=== PATIENT | male | born 1990 | race Two or more races ===

== ENCOUNTER 2024-05-24 06:50 | Emergency (ER) | payer MEDICARE, MEDICAID, SELFPAY ==
[2024-05-24 06:51] VITALS: BMI 35.9
[2024-05-24 07:01] VITALS: BP 120/70; PULSE 131; RESP 19; TEMP 37; O2SAT 98
--- NOTE | 2024-05-24 07:12 | XR_ITS ---
Examination: Tibia-Fibula, right , 2 views Technique: Tibia-fibula AP lateral 2 views Date and time of exam: May 24, 2024 0719 hrs. 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
--- NOTE | 2024-05-24 07:12 | XR_ITS ---
Examination: Duplex scan of the lower extremity, unilateral right complete Date and time of exam: May 24, 2024 0759 hrs. Indications: Right tibia surgery May 22, 2024 followed by right leg pain and swelling beginning 2 days ago Technique: Duplex scan of the extremity veins using B-mode/grayscale imaging and Doppler spectral analysis and color flow Attention is directed to internal echogenicity, compression and augmentation involving these veins, color flow assessment, spectral analysis Findings: Positive for acute nonocclusive thrombus in the right proximal posterior tibial vein Right common femoral superficial femoral popliteal and peroneal veins are open Impression: Positive for acute nonocclusive thrombus in the proximal right posterior tibial vein
--- NOTE | 2024-05-24 07:13 | PD.EDRME ---
Rapid Medical Screening Exam RME Arrival date/time: 05/24/24 06:50 Chief Complaint: Wound Recheck / Suture Removal Time Seen by Provider: 05/24/24 06:57 Vital signs: Vital Signs Temperature 98.6 F 05/24/24 07:01 Pulse Rate 131 H 05/24/24 07:01 Respiratory Rate 19 05/24/24 07:01 Blood Pressure 120/70 05/24/24 07:01 Pulse Oximetry (%) 98 05/24/24 07:01 Oxygen Delivery Method Room Air 05/24/24 07:01 RME Narrative: Patient POD#2 s/p revision of RLE ORIF. Ortho is in [place]. 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
[2024-05-24] MEDS: MORPHINE SULF INJ 10 MG/ML VIAL 5 MG IM (07:40)
[2024-05-24 08:27] VITALS: BP 110/78; PULSE 115; RESP 18; TEMP 37.3; O2SAT 98
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
[2024-05-24] MEDS: HYDROmorphone INJ 2 MG/ML VIAL IM (08:56)
[2024-05-24] MEDS: ENOXAPARIN SOD INJ 100 MG/ML SYRINGE SC (08:56)
[2024-05-24 09:27] VITALS: BP 117/70; PULSE 108; RESP 17; TEMP 37.2; O2SAT 95
== END 2024-05-24 09:53 | disposition home or self-care (01) ==
PROVIDERS: Emergency Provider Emergency Medicine; PCP Family Medicine
DX: I82.441 Acute embolism and thrombosis of right tibial vein (principal)
CPT/HCPCS: 73590; 93971; 96372; 99284; J1650; J2270; J3490

== ENCOUNTER 2024-05-24 17:41 | Emergency (ER) | payer MEDICARE, MEDICAID, SELFPAY ==
[2024-05-24 17:51] VITALS: PULSE 88; RESP 18; O2SAT 98; BMI 31.4
[2024-05-24 18:10] VITALS: BP 114/73; PULSE 116; RESP 19; TEMP 38.3; O2SAT 97
--- NOTE | 2024-05-24 18:18 | XR_ITS ---
Examination: AP chest single view Technique: Sitting AP chest single view Exam date and time: May 24, 2024 1855 hrs. Indications: Chest pain leg pain sepsis today Findings: Mild prominence left ventricle Moderate blunting of left lateral costophrenic angle. No pneumonia or pulmonary edema Surgical clips in right axilla and stent in the thoracic aorta Impression: No pneumonia or pulmonary edema
--- NOTE | 2024-05-24 18:18 | EKG_ITS ---
[facility] Test Date: 2024-05-24 Pat Name: DEVORA ESPINOSA Department: Room: - Gender: Male Lifeguard: : 1990 Requested By: Luiz Munoz ([facility]) Order Number: [id number] Reading MD: Luiz Munoz ([facility]) Measurements Intervals [place] Rate: 110 P: 45 TN: 124 QRS: 34 QRSD: 89 T: 54 QT: 303 QTc: 410 Interpretive Statements SINUS TACHYCARDIA POSSIBLE LEFT ATRIAL ENLARGEMENT [-0.1mV P WAVE IN V1/V2] ABNORMAL RHYTHM ECG Compared to ECG 05/14/2022 05:53:06 Sinus rhythm no longer present /[id number]/[email or web address]/[id number]
--- NOTE | 2024-05-24 18:19 | PD.EDRME ---
Rapid Medical Screening Exam RME Arrival date/time: 05/24/24 17:41 33-year-old male recently diagnosed with DVT right lower extremity presents emergency department complaining of right lower leg pain with nausea vomiting and fever. Chief Complaint: Hip Injury/Pain Time Seen by Provider: 05/24/24 18:13 Vital signs: Vital Signs Temperature 101.0 F H 05/24/24 18:10 Pulse Rate 116 H 05/24/24 18:10 Respiratory Rate 19 05/24/24 18:10 Blood Pressure 114/73 05/24/24 18:10 Pulse Oximetry (%) 97 05/24/24 18:10 Oxygen Delivery Method Room Air 05/24/24 18:10 Vital signs reviewed by provider: Yes
[2024-05-24 18:22] VITALS: TEMP 38.3
[2024-05-24] MEDS: ACETAMINOPHEN 500 MG TABLET 1000 MG PO (18:22)
[2024-05-24 18:56] LABS: Lactate (Lactic Acid) 1.2 mMol/L (0.4-2.0)
[2024-05-24 18:57] LABS: Basophils # (Auto) 0.1 Thou/mm3 (0.0-0.2); Basophils % (Auto) 1 % (0-2.5); Eosinophils # (Auto) 0.3 Thou/mm3 (0.0-0.5); Eosinophils % (Auto) 2 % (0-10); Hematocrit 39.7 % (41.0-53.0); Hemoglobin 13.3 g/dL (13.5-16.0); Immature Granulocytes % (Auto) 1 % (0-0); Lymphocytes % (Auto) 6 % (10-50); Mean Corpuscular HGB Conc 33.5 g/dl (31.0-37.0); Mean Corpuscular Hemoglobin 27.7 pg (25.0-35.0); Mean Corpuscular Volume 83 fL (80-100); Monocytes # (Auto) 0.9 Thou/mm3 (0.0-0.8); Monocytes % (Auto) 5 % (0-12); Neutrophils # (Auto) 14.1 Thou/mm3 (1.8-7.7); Neutrophils % (Auto) 86 % (37-80); Nucleated Red Blood Cell % 0 /100 WBC (0); Platelet Count 234 Thou/mm3 (140-440); RDW Standard Deviation 44.1 fL (35.1-43.9); White Blood Count 16.5 Thou/mm3 (3.8-10.6)
[2024-05-24 19:14] LABS: INR 1.1 (0.9-1.3); Partial Thromboplastin Time 35.4 Seconds (22.0-36.0); Prothrombin Time 12.2 Seconds (9.0-12.2)
[2024-05-24 19:21] LABS: B-Type Natriuretic Peptide 62 pg/mL (0-100)
[2024-05-24 19:27] LABS: Alanine Aminotransferase 153 U/L (10-49); Albumin, Serum 5.1 gm/dL (3.5-5.0); Albumin/Globulin Ratio 1.9 (1.2-2.2); Alkaline Phosphatase 206 U/L (46-116); Anion Gap 8 (7-16); Aspartate Amino Transferase 75 U/L (0-34); BUN/Creatinine Ratio 14 Ratio (12-20); Bilirubin,Total 1.2 mg/dL (0.3-1.2); Blood Urea Nitrogen 11 mg/dL (9-23); Calcium 9.6 mg/dL (8.3-10.6); Calcium (Corrected) 9.6 mg/dL (8.5-10.1); Carbon Dioxide 22.6 mMol/L (20.0-31.0); Chloride 102 mMol/L (98-107); Creatinine (Component) 0.8 mg/dL (0.6-1.3); Globulin 2.7 gm/dL (2.3-3.5); Glucose 118 mg/dL (74-106); Lipase 24 U/L (12-53); Magnesium 1.5 mg/dL (1.6-2.6); Osmolality,Calculated 266 (275-295); Phosphorous 1.9 mg/dL (2.4-5.1); Potassium 3.8 mMol/L (3.4-5.1); Sodium 133 mMol/L (136-145); Total Protein 7.8 gm/dL (5.7-8.2); Troponin I < 0.002 ng/mL (0.0-0.045); eGFR > 60 See Note
[2024-05-24 19:30] LABS: Procalcitonin 0.54 ng/ml (0.0-0.49)
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
[2024-05-24 21:37] VITALS: BP 137/81; PULSE 109; RESP 19; TEMP 37.6; O2SAT 100
[2024-05-24] MEDS: PIPER/TAZO 3.375 GM 3.375 GM/50 ML BAG IV (22:25)
[2024-05-24] MEDS: ONDANSETRON INJ 2 MG/ML INJ 2 ML 4 MG IV (22:25)
[2024-05-24] MEDS: Magnesium Sulfate 2 GM Ivpb 2 GM/50 ML BAG IV (22:25)
[2024-05-24] MEDS: HYDROmorphone INJ 2 MG/ML VIAL 1 MG IVP ×2 (22:25→23:26)
[2024-05-24] MEDS: SODIUM CHLORIDE 0.9% 1000 ML 1,000 ML 999 ML IV (22:26)
[2024-05-24 22:29] VITALS: BP 154/79; PULSE 105; RESP 18; O2SAT 98
[2024-05-24 23:00] VITALS: BP 155/69; PULSE 102; RESP 9; O2SAT 98
[2024-05-24] MEDS: Vancomycin Inj 1,000 MG in SODIUM CHLORIDE 0.9% 250 ML 250 ML 150 MG IV (23:11)
[2024-05-24 23:46] LABS: Collection Type, Urine Clean Catch
[2024-05-24 23:53] LABS: Bilirubin,Urine Negative (Negative); Blood,Urine Negative (Negative); Clarity,Urine Clear (Clear/Hazy); Color,Urine Lt-Yellow (Lt Yel-Yel); Glucose, Urine Negative (Negative); Ketones,Urine Negative (Negative); Leukocyte Esterase,Urine Negative (Negative); Nitrite,Urine Negative (Negative); PH,Urine 6.5 (5.0-7.0); Protein,Urine Negative (Neg - Trace); RBC,Urine < 1 /hpf (0-3); Specific Gravity,Urine 1.011 (1.001-1.035); Squamous Epithelial Cell,Urine < 1 /hpf (0-5); Urobilinogen,Urine Negative mg/dL (0.0-1.0); WBC,Urine 1 /hpf (0-5)
[2024-05-24 23:59] LABS: Amphetamine/Methamp Scrn,U Negative (Negative); Barbiturate Screen,Urine Negative (Negative); Benzodiazepines Screen,Urine Negative (Negative); Benzoylecgonine Screen, Ur Negative (Negative); Fentanyl Screen,Urine Negative (Negative); Opiate Screen,Urine Positive (Negative); THC Screen,Urine Positive (Negative)
[2024-05-25] VITALS (36 sets, daily range): BP systolic 111–161; BP diastolic 58–80; PULSE 81–118; RESP 8–21; TEMP 36.7–38.1; O2SAT 94–100
--- NOTE | 2024-05-25 00:33 | XR_ITS ---
Examination: CT right lower extremity, without contrast. 2-D sagittal reconstructions. 2-D coronal reconstructions. 3-D reconstructions. Date and time of exam:December 24, 2023 0049 hrs. Indications: Right leg swelling and pain this week, history tibial fractures post reduction internal fixation CTDI: vol (mGy):8.64 DLP: (mGycm):597 Technique: Multiple 1.25 mm axial sections of the right lower leg without intravenous contrast have been obtained. 2-D sagittal and coronal reconstructions have been obtained. 3-D reconstructions have been obtained. Low dose protocols were performed. One or more of the following dose reduction techniques were used; automated exposure control, adjustment of the mA and/or KV according to patient size, use of iterative reconstruction technique. 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
--- NOTE | 2024-05-25 00:46 | XR_ITS ---
Examination: Abdomen sonogram, Limited Date and time of exam: May 25, 2024 0216 hrs. Indications: Right abdominal pain beginning 3 days ago Technique: Real-time narvaez scale transabdominal sonographic images of the upper abdomen obtained. Findings: Absent gallbladder Normal common bile duct 0.5 cm Pancreatic head 3.3 cm Liver 15.2 cm no focal liver lesions Normal hepatopedal portal venous flow Patent IVC Impression: Absent gallbladder Normal common bile duct
[2024-05-25] MEDS: MORPHINE SULF INJ 10 MG/ML VIAL 5 MG IVP ×2 (01:10→05:58)
--- NOTE | 2024-05-25 02:04 | PRELIM_ITS ---
CT scan of the right lower extremity without intravenous contrast (axial sections with sagittal and c oronal reformats) May 25, 2024 0049 hours Clinical History: Post surgical infection Comparison: No prior study is available for comparison. 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 A surgical plate is noted at the level of non- united fracture of the distal tibia. An intramedullary nail with screws are noted in the tibia. There is possible periprosthetic lucency around the distal portion of the intramedullary nail, concerning for loosening. There is a chronic osseous defect at the proximal end of the intramedullary nail in th e anterosuperior aspect of lateral tibial plateau with associated granulation tissue and calcificatio ns, also involving the patellar tendon. There are chronic deformities in the head, mid shaft and dist al metaphysis of the fibula. Surgical implants are noted in the distal femur, partially imaged. No ac asa'[place] fracture or dislocation is noted. No joint effusion is noted. There are scattered areas of subcut aneous soft tissue granulation / phlegmon with calcifications in the anterior aspect of proximal and distal leg. There is no definite evidence of drainable loculated fluid collection to suggest abscess. There is mild soft tissue edema involving predominantly the muscles of the proximal leg. There is n o evidence of soft tissue emphysema. There is diffuse subcutaneous edema involving the leg.Impression :Postsurgical changes with chronic fractures / deformities as described above. No drainable loculated fluid collection to suggest abscess. Diffuse subcutaneous edema with mild muscle edema in the leg as described, concerning for cellulitis. Recommend clinical correlation. Possible loosening of the intr amedullary tibial nail in the distal portion. Recommend clinical correlation. Scattered areas of subc utaneous soft tissue granulation / phlegmon with calcifications in the anterior aspect of proximal an d distal leg.Other findings as described above. Report Electronically Signed By: Nimesh Jane 2023 2:04:42 AM [EST]
--- NOTE | 2024-05-25 02:37 | PC.NURSE ---
0019 CONTA[address] [facility] SPOKE WITH [facility]. PT PKT SENT AT THIS TIME. [facility] IS AT CAPACITY
[2024-05-25] MEDS: HYDROcodone/APAP 5/325 TABLET 2 TAB PO (03:26)
--- NOTE | 2024-05-25 04:26 | PRELIM_ITS ---
Right upper quadrant abdominal ultrasound. May 25, 2024 0216 hours Clinical history: fever, elev ated LFTs Comparison: NoneFindings:Cholecystectomy. Common bile duct is 5 mm in diameter. Pancreas i s 3.3 cm is noted. Pancreatic tail is obscured. Liver is 15.2 centimeters long. Liver parenchyma is h yperechoic with smooth contour. No focal hepatic lesion. Main portal vein is antegrade. Inferior vena cava is patent.Impression: Fatty liver infiltration.No acute process. Report Electronically Signed B y: Brian Hooker 05/25/2024 4:25:18 AM [EST]
--- NOTE | 2024-05-25 08:41 | PC.CM ---
Addendum entered by Zeinab Aguilar RN 05/25/24 14:27: 1425 I called [facility] again, spoke to Sunil. She stated the status is it's still pending financial clearance. I informed her per Dr. Latif pt is septic and it's life or limb and we cannot wait until tomorrow for getting insurance auth. She continue to argue with me back and forth and stated regardless they are unable to bring pt. because of diversion. Addendum entered by Zeinab Aguilar RN 05/25/24 14:21: [address] Latif pt is accepted but transfer center wants me to work on getting insurance auth. Dr. Latif stated pt is septic and is sick it's life or limb situation. Addendum entered by Zeinab Aguilar RN 05/25/24 14:14: 1412 called [facility], spoke to See and she confirmed pt is accepted by Dr. Bradley Luna. She stated but it requires insurance auth. I informed her pt is in ED and for ED pt auth is not required. She stated it's a post op infection not life threatening condition. So it is not an EMTALA. She stated we need to work on getting insurance auth for the transfer. Addendum entered by Zeinab Aguilar RN 05/25/24 14:11: error in time it's [address] Velasquez office at [phone]. Spoke to after hours provider service representative again and I was connected to Dr. Bradley Luna again. He stated he spoke to [facility] transfer center to accept the pt. Addendum entered by Zeinab Aguilar RN 05/25/24 14:08: [address] Velasquez office at [phone]. Spoke to after hours provider service representative again and I was connected to Dr. Bradley Luna again. He stated he spoke to [facility] transfer center to accept the pt. Addendum entered by Zeinab Aguilar RN 05/25/24 14:05: [address] Velasquez office at [phone]. Spoke to after hours provider service representative Osvol and informed regarding the pt. He stated Dr. Velasquez is not available but he can connect me to professional shopper orthopedic Dr. Bradley Luna. I spoke to DrMike informed that pt is back in ED. I informed him about CT lower extremity report, reason why the pt came. Dr. Bradley Luna stated pt just had his surgery this and pt is going to have nonunion fracture. He stated he is going to speak to Dr. Velasquez and call me back. Addendum entered by Zeinab Aguilar RN 05/25/24 10:10: [address] Latif to inform, community relations coordinator informed me, he is busy with critical pt. Addendum entered by Zeinab Aguilar RN 05/25/24 10:09: [address] Latif, he is busy with pt. Unable to speak to him. Addendum entered by Zeinab Aguilar RN 05/25/24 10:02: 0849 Called [facility], spoke to See to initiate the transfer. She stated they are at capacity. I informed her pt had sx at [facility] and is back in ER. She stated Dr. Velasquez operated the pt. I have to call his office at [phone] directly. I told her that today is Sunday and office wont be open. We can't keep the pt in ER for that long and pt had surgery done at [facility]. She stated they are at capacity. We have to call directly. It was back and forth conversation and she does not want to proceed further. She just want me to call the 's office directly. Original Note: [address] 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 Pt has sx at [facility] last . It's a continuation of care/general surgery services request. 71 spoke to charge nurse that pt needs to be transferred. She stated it was initiated by charge nurse last night but [facility] where pt had his surgey done, declined saying they are at capacity. I asked the dx, charge nurse informed me that they are waiting for CT result of right lower extremity. I will follow up with Dr. Latif when CT report is available.
[2024-05-25] MEDS: SODIUM CHLORIDE 0.9% 1000 ML 1,000 ML 125 ML IV (09:10)
[2024-05-25] MEDS: MORPHINE SULF INJ 10 MG/ML VIAL 4 MG IVP (09:10)
[2024-05-25] MEDS: PIPER/TAZO 3.375 GM 50 ML IV ×2 (09:20→22:56)
[2024-05-25] MEDS: ONDANSETRON INJ 2 MG/ML INJ 2 ML 4 MG IV (09:20)
[2024-05-25] MEDS: HYDROmorphone INJ 2 MG/ML VIAL 1 MG IVP ×3 (11:01→18:01)
[2024-05-25] MEDS: DiphenhydrAMINE INJ 50 MG/ML VIAL IVP (14:37)
--- NOTE | 2024-05-25 17:37 | PD.EDADDENDU ---
Emergency Room Addendum Addendum Narrative: Patient was signed out to me from Dr. MALDONADO at 6:00 this morning. She said that workup has been completed. The patient is pending transfer to [facility] where he had his most recent surgery done last . By . Patient states that he had a screw removed from his right tibia area. Now he complained with a fever 101 and septic. Lactic acid is negative. Procalcitonin is 0.54. The patient was given IV vancomycin and Zosyn by my predecessor Dr. MALDONADO. Patient is also diagnosed with DVT of the right leg. For which he was put on Eliquis by Dr. Monroy yesterday morning. I am giving the patient IV painkiller almost [id number] because he was screaming and groaning and moaning in pain. Throughout the whole day, FLORESITA, our transfer nurse has been working on the transfer. She told me that the patient has been accepted by Dr. Bradley Luna. But the facility is on diversion and the transfer nurse from [facility] is made aware of the severity of our patient condition. She required insurance authorization also. And according to the transfer nurse from our facility, she is working on insurance preauthorization also. 5:15 PM, I also spoke to and discussed with Dr. Pierson, our orthopedic surgeon on-call. He said that he would come in and see the patient and write a note. But he recommended that the patient be transferred as well. 6 PM, still pending a successful transfer, the patient is stable and is signed out to Dr. MALDONADO Diagnosis: Fever DVT Osteomyelitis Loosening intramedullary dariela Condition: Stable at signout and pending Dr. Pierson's evaluation and note
--- NOTE | 2024-05-25 17:50 | PC.NURSE ---
Patient states pain 10/10. Informed ER provider and received verbal order for 1mg hydromorphone and 25mg benadryl
[2024-05-25] MEDS: DiphenhydrAMINE INJ 50 MG/ML VIAL 25 MG IVP (18:01)
[2024-05-25] MEDS: APIXABAN 2.5 MG TABLET 5 MG PO (18:02)
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
[2024-05-25] MEDS: VANCOMYCIN/NS 1 GM IVPB 200 ML IV (19:16)
--- NOTE | 2024-05-25 20:22 | EDNOTE_ITS ---
Emergency Room Addendum <Yaz Briceno - Last Filed: 05/26/24 00:35> Addendum Narrative: 1800: Care assumed from Dr. Latif, the previous shift emergency physician. Past medical, surgical, social and family history reviewed. Vitals and home medications reviewed. I will assume the care of the patient at this time, pending Dr. Scott's consultation and final disposition, possible transfer. Please refer to the emergency department record for history and examination from initial visit.? Physical exam by me shows patient under no acute distress at this time. 1200: [facility] accepted patient, Dr. Bradley Luna accepted. <Lali Reynoso - Last Filed: 05/26/24 05:29> Addendum Narrative: 1800: Care assumed from Dr. Latif, the previous shift emergency physician. Past medical, surgical, social and family history reviewed. Vitals and home medications reviewed. I will assume the care of the patient at this time, pending Dr. Scott's consultation and final disposition, possible transfer. Please refer to the emergency department record for history and examination from initial visit.? Physical exam by me shows patient under no acute distress at this time. 1200: [facility] accepted patient, Dr. Bradley Luna accepted. 0600: Care signed out to [facility] emergency physician. Past medical, surgical, social and family history reviewed. Vitals and home medications reviewed. They will assume the care of the patient at this time, pending authorization for transfer.
[2024-05-25] MEDS: oxyCODONE/APAP 5/325 TABLET 2 TAB PO (20:38)
[2024-05-25] MEDS: fentaNYL 50 mCg TRANSDERMAL PATCH 100 MCG TOP (21:39)
[2024-05-26] VITALS (12 sets, daily range): BP systolic 127–173; BP diastolic 63–83; PULSE 82–105; RESP 15–33; TEMP 36.8–37.2; O2SAT 95–100
[2024-05-26] MEDS: oxyCODONE/APAP 5/325 TABLET 2 TAB PO (04:50)
--- NOTE | 2024-05-26 05:19 | PC.NURSE ---
pt placed on waffle mattress
[2024-05-26] MEDS: VANCOMYCIN/NS 1 GM IVPB 200 ML IV ×2 (06:51→15:23)
--- NOTE | 2024-05-26 06:55 | PC.NURSE ---
Pt had a good night. Sleepping with pain controlled.
--- NOTE | 2024-05-26 08:00 | PC.NURSE ---
MD MONTEIRO AWARE PT IS IN PAIN NO ORDERS GIVEN
--- NOTE | 2024-05-26 08:42 | PC.CM ---
Addendum entered by Francesca Gordon RN 05/27/24 08:27: I spoke to Diana with [employer] and I let her know patient left AMA yesterday evening. Addendum entered by Francesca Gordon RN 05/26/24 18:02: This patient also has [employer] insurance at ?[phone]. I spoke to Diana and I presented patient and faxed over documentation. She will get back to us once the Geology Professor reviews patient. I did not hear anything at the end of the day. I am back tomorrow so I will follow up. Addendum entered by Francesca Gordon RN 05/26/24 15:05: 1320 I called Maryann at [facility] to follow up on authorization request [phone] ext. [phone]. I was only able to leave a message. I asked for a call back as soon as possible. Addendum entered by Francesca Gordon RN 05/26/24 09:10: I contacted [facility] [phone] and I spoke to the department. I initiated a request for higher level transfer. They requested I fax information along with a facesheet to [phone]. I fax information at this time. Original Note: I called and spoke to See with the transfer center at [facility]. She states they are very familiar with this patient. She states she we will need to get authorization from patient's insurance before they will proceed. I let her know per the notes our doctor feels patient is emergent and we should not need authorization. See states their doctor reviewed patient's information and he does not feel patient is emergent. Again, See stated they are very familiar with this patient. I will reach out to patient's insurance this morning.
--- NOTE | 2024-05-26 09:29 | EDNOTE_ITS ---
Emergency Room Addendum <Haylee Cooper - Last Filed: 05/26/24 09:47> Addendum Narrative: 0600: Care assumed from Dr. Choudhary, the previous shift emergency physician. Past medical, surgical, social and family history reviewed. Vitals and home medications reviewed. I will assume the care of the patient at this time, pending insurance authorization for transfer. Please refer to the emergency department record for history and examination from initial visit.? Nursing notes reviewed by me. Vital signs reviewed by me. [facility] medical records reviewed by me. <Gilbert Latif MD - Last Filed: 05/26/24 18:09> Addendum Narrative: 0600: Care assumed from Dr. Choudhary, the previous shift emergency physician. Past medical, surgical, social and family history reviewed. Vitals and home medications reviewed. I will assume the care of the patient at this time, pending insurance authorization for transfer. Please refer to the emergency department record for history and examination from initial visit.? Nursing notes reviewed by me. Vital signs reviewed by me. [facility] medical records reviewed by me. There has been no issues since signout to me from Dr. CHOUDHARY at 6:00 this morning. Still pending insurance authorization for transfer to [facility], the patient is stable and is now signed out to Dr. Woo Diagnosis: DVT Osteomyelitis Loosening intramedullary dariela
[2024-05-26] MEDS: PIPER/TAZO 3.375 GM 50 ML IV ×2 (09:56→15:24)
--- NOTE | 2024-05-26 15:21 | PC.NURSE ---
MD MADE AWARE PT IS IN EXCRUCIATING PAIN, NO ORDERS GIVEN.
--- NOTE | 2024-05-26 18:22 | PD.EDADDENDU ---
Emergency Room Addendum Addendum Narrative: 6:22 PM, I am being notified by the nurse Eduarda that the patient has just signed out AGAINST MEDICAL ADVICE. According to her, the patient's sister came and picked him up. She was not able to convince the patient to stay. And he is taking the risks by signing out AMA.
== END 2024-05-26 18:22 | disposition left against medical advice (07) ==
PROVIDERS: Emergency Provider Emergency Medicine; PCP Family Medicine
DX: A41.9 Sepsis, unspecified organism (principal); L03.115 Cellulitis of right lower limb; T84.038A Mechanical loosening of other internal prosthetic joint, initial encounter; Y83.8 Other surgical procedures as the cause of abnormal reaction of the patient, or of later complication, without mention of misadventure at the time of the procedure; R10.9 Unspecified abdominal pain; R00.0 Tachycardia, unspecified; I82.4Z3 Acute embolism and thrombosis of unspecified deep veins of distal lower extremity, bilateral; M86.8X6 Other osteomyelitis, lower leg; I10 Essential (primary) hypertension; Z53.29 Procedure and treatment not carried out because of patient's decision for other reasons
CPT/HCPCS: 36415; 71046; 73700; 76705; 80053; 80202; 80307; 81001; 83605; 83690; 83735; 83880; 84100; 84145; 84484; 85025; 85610; 85730; 87040; 87086; 87400; 87811; 93005; 96361; 96365; 96366; 96375; 96376; 99285; J1200; J2270; J2405; J2543; J3370; J3371; J3475; J3490; J7030; J7050; A9270

== ENCOUNTER 2024-07-04 21:53 | Emergency (ER) | payer MEDICARE, MEDICAID, SELFPAY ==
[2024-07-04 21:55] VITALS: BMI 34.4
[2024-07-04 22:07] VITALS: BP 161/81; PULSE 100; RESP 18; TEMP 36.8; O2SAT 94
--- NOTE | 2024-07-04 22:08 | EKG_ITS ---
[facility] Test Date: 2024-07-04 Pat Name: DEVORA ESPINOSA Department: Room: - Gender: Male [employer]: : 1990 Requested By: Russ Harper Order Number: [id number] Reading MD: Russ Harper Measurements Intervals [place] Rate: 92 P: 50 NH: 150 QRS: 36 QRSD: 94 T: 47 QT: 361 QTc: 448 Interpretive Statements SINUS RHYTHM Compared to ECG 05/24/2024 18:44:32 Sinus tachycardia no longer present /store/S0/[id number].pdf
--- NOTE | 2024-07-04 22:09 | PD.EDRME ---
Rapid Medical Screening Exam RME Arrival date/time: 07/04/24 21:53 33-year-old male with no known medical history presents to the emergency room with a chief complaint of chest palpitations and chest pain that is an 8 out of 10 in severity and radiates to his upper neck x 1 day I have greeted and performed a focused initial assessment of this patient. A comprehensive ED assessment and evaluation of the patient, analysis of all test results, and completion of the medical decision making process will be conducted by additional ED providers. Chief Complaint: Arrhythmia/Palpitations Vital signs: Vital Signs Temperature 98.2 F 07/04/24 22:07 Pulse Rate 100 07/04/24 22:07 Respiratory Rate 18 07/04/24 22:07 Blood Pressure 161/81 H 07/04/24 22:07 Pulse Oximetry (%) 94 L 07/04/24 22:07 Oxygen Delivery Method Room Air 07/04/24 22:07 Vital signs reviewed by provider: Yes
[2024-07-04 23:23] LABS: Basophils # (Auto) 0.1 Thou/mm3 (0.0-0.2); Basophils % (Auto) 1 % (0-2.5); Eosinophils # (Auto) 0.5 Thou/mm3 (0.0-0.5); Eosinophils % (Auto) 4 % (0-10); Hematocrit 35.5 % (41.0-53.0); Hemoglobin 11.8 g/dL (13.5-16.0); Immature Granulocytes % (Auto) 0 % (0-0); Immature Granulocytes Auto 0.04 Thou/mm3 (0.00-0.00); Lymphocytes # (Auto) 2.3 Thou/mm3 (1.0-4.8); Lymphocytes % (Auto) 20 % (10-50); Mean Corpuscular HGB Conc 33.2 g/dl (31.0-37.0); Mean Corpuscular Volume 81 fL (80-100); Monocytes # (Auto) 0.7 Thou/mm3 (0.0-0.8); Monocytes % (Auto) 6 % (0-12); Neutrophils # (Auto) 7.8 Thou/mm3 (1.8-7.7); Neutrophils % (Auto) 68 % (37-80); Nucleated Red Blood Cell % 0 /100 WBC (0); Platelet Count 319 Thou/mm3 (140-440); RDW Standard Deviation 44.7 fL (35.1-43.9); Red Blood Count 4.37 Miln/mm3 (4.50-5.90); White Blood Count 11.5 Thou/mm3 (3.8-10.6)
[2024-07-04 23:35] LABS: Alanine Aminotransferase 44 U/L (10-49); Albumin, Serum 4.6 gm/dL (3.5-5.0); Albumin/Globulin Ratio 1.5 (1.2-2.2); Alkaline Phosphatase 168 U/L (46-116); Anion Gap 8 (7-16); Aspartate Amino Transferase 22 U/L (0-34); BUN/Creatinine Ratio 16 Ratio (12-20); Bilirubin,Total 0.2 mg/dL (0.3-1.2); Blood Urea Nitrogen 13 mg/dL (9-23); Calcium 9.5 mg/dL (8.3-10.6); Calcium (Corrected) 9.5 mg/dL (8.5-10.1); Carbon Dioxide 25.2 mMol/L (20.0-31.0); Chloride 103 mMol/L (98-107); Creatinine (Component) 0.8 mg/dL (0.6-1.3); Estimated Creatinine Clearance 160.7 mL/min (>60); Globulin 3.1 gm/dL (2.3-3.5); Glucose 116 mg/dL (74-106); Magnesium 1.7 mg/dL (1.6-2.6); Osmolality,Calculated 273 (275-295); Potassium 3.6 mMol/L (3.4-5.1); Sodium 136 mMol/L (136-145); Total Protein 7.7 gm/dL (5.7-8.2); Troponin I < 0.002 ng/mL (0.0-0.045); eGFR > 60 See Note
[2024-07-04 23:48] LABS: B-Type Natriuretic Peptide 28 pg/mL (0-100)
--- NOTE | 2024-07-05 01:34 | PC.NURSE ---
PATIENT ELOPED THE ER DUE TO LONG WAIT TIME. PROVIDER NOTIFIED.
== END 2024-07-05 01:35 | disposition left against medical advice (07) ==
LOC: SERX 22:55
PROVIDERS: Nurse Practitioner Family; Emergency Provider Emergency Medicine; PCP Family Medicine
DX: R00.2 Palpitations (principal); R07.9 Chest pain, unspecified; Z53.29 Procedure and treatment not carried out because of patient's decision for other reasons
CPT/HCPCS: 36415; 80053; 83735; 83880; 84484; 85025; 85610; 85730; 93005; 99281